=== PATIENT | male | born 1995 | race Caucasian/White ===

== ENCOUNTER 2017-05-29 14:00 | Emergency (ER) | payer OTHER ==
[~2017-05-29] VITALS: Ht 172.7 cm; Wt 83.6 kg
[2017-05-29 14:05] VITALS: TEMP 36.7; Ht 172.7 cm; Wt 83.6 kg
[2017-05-29] MEDS ORDERED: IBUPROFEN 600 MG TAB PO STA (14:20)
[2017-05-29] MEDS ORDERED: MUPIROCIN 2% OINT 22 GM TUBE EXT STA (14:20)
--- NOTE | 2017-05-29 14:30 | EMERGENCY ROOM VISIT NOTE ---
ED Visit Note First contact with patient: 14:15 CHIEF COMPLAINT: Right eye swelling HISTORY OF PRESENT ILLNESS: This 22-year-old male patient presents to the emergency department, ambulatory, complaining of redness and swelling of his right upper eyelid. He states he awoke this morning and was unable to open the eye the entire way. He describes swelling and pain in the area of the eyebrow. He states he believes there may have been an ingrown hair from the eyebrow. The area began as a small pustule, and the redness and swelling has spread. The patient denies any changes in vision, fever, chills, nausea, vomiting. He states there has been no drainage from the wound. He denies any problems with the actual eye or eyelid, but states the swelling seems to be spreading from the eyebrow. He does not have a history of similar symptoms. The patient's mother is concerned the patient could have a stye. REVIEW OF SYSTEMS: A review of systems was performed with positives and pertinent negatives listed in the history of present illness. All other systems were reviewed and are negative. ALLERGIES: None MEDICATIONS: None PMH: None SOCIAL HISTORY: The patient is a [employer] student. He lives locally with his remain. She denies drug, alcohol, tobacco use. PHYSICAL EXAM: VITALS: Vitals are noted on the nurse's note and reviewed by myself. Vital signs stable. GENERAL: This is a 22-year-old white male, in no acute distress, nondiaphoretic , well-developed well-nourished. SKIN: There is a small pustule on the medial aspect of the right eyebrow with mild erythema and normal swelling surrounding the lesion. The right upper eyelid does appear to be very mildly swollen. There are no signs of abscess noted. The pustule is not actively draining. EMERGENCY DEPARTMENT COURSE: The patient was seen and evaluated as above. This is not an actual eye problem, however appears to be coming from a pustular lesion near the eyebrow. The area does not appear to be severely infected, but does appear to have a mild superficial infection related to the pustule. The patient was given 600 mg ibuprofen to help with the swelling and the Sharma ointment to use topically. Discharge instructions were reviewed and the patient was discharged home in good condition. I attest that I have personally reviewed the patient's current medication list. Patient was found to have normal blood pressure on screening and does not require follow-up. DIFFERENTIAL DIAGNOSIS: Cellulitis, periorbital cellulitis, blepharitis, stye, chalazion, pustule, and others DIAGNOSIS: Pustular lesion Current/Historical Medications No Active Prescriptions or Reported Meds Allergies Coded Allergies: No Known Allergies (Unverified , 07/04/16) Vital Signs Date Time Temp Pulse Resp B/P (MAP) Pulse Ox O2 Delivery O2 Flow Rate FiO2 05/29/17 14:37 80 133/93 98 05/29/17 14:05 36.7 81 16 139/83 99 Room Air Medications Administered Medications (Trade) Dose Ordered Sig/Asif Route Start Time Stop Time Status Last Admin Dose Admin Mupirocin (Bactroban 2% Oint) 1 appln NOW STAT EXT 05/29/17 14:20 05/29/17 14:23 DC 05/29/17 14:31 1 APPLN Ibuprofen (Motrin Tab) 600 mg NOW STAT PO 05/29/17 14:20 05/29/17 14:23 DC 05/29/17 14:30 600 MG Departure Information Impression Primary Impression: Pustular lesion Dispostion Home / Self-Care Condition GOOD Prescriptions No Active Prescriptions or Reported Meds Referrals No Doctor, Assigned (PCP) [facility] Patient Instructions ED Wound Care, My [facility] Additional Instructions You were seen in the emergency department for a superficial skin infection above the right eye. This could be an ingrown hair or a pimple. It is not involving your eye or actual eyelid. I do feel that this is superficial in nature, and do not feel that it requires oral antibiotics. You have been prescribed Bactroban (mupirocin) Ointment. Use this ointment three times daily to help with the localized infection. Do not get the ointment in your eye. Keep the area clean and dry. You can use plain soap or baby shampoo and water. Ibuprofen(Motrin, Advil) may be used for inflammation or pain. Use 600mg every six hours as needed. Take with food. Avoid using more than 2400mg in a 24 hour period. Do not use 2400mg per day for more than three consecutive days without physician direction. Prolonged inappropriate use can lead to stomach upset or ulcers. (AND/OR) Acetaminophen(Tylenol) may be used for fever or pain. Use 1000mg every six hours as needed. Avoid using more than 3000mg in a 24 hour period. Follow-up with [facility] in 2-3 days for recheck of the wound. Return to the emergency department for any increased redness, swelling, puslike drainage, fever, chills, nausea, vomiting, or other concerning symptoms.
[2017-05-29 14:37] VITALS: BP 133/93; PULSE 80; O2SAT 98
== END 2017-05-29 14:38 | disposition home or self-care (01) ==
LOC: C.EDB 14:01 → C.EDD 14:38
DX: L08.0 Pyoderma (principal)

== ENCOUNTER 2019-04-25 17:40 | Observation (INO) ==
[2019-04-25] MEDS ORDERED: ALBUT/IPRATROP 3MG/0.5MG NEB 3 ML VIAL INH STA (18:35)
[2019-04-25] MEDS ORDERED: methylPREDNISolone 125 MG/2 ML VIAL IV STA (18:46)
[2019-04-25] MEDS ORDERED: SODIUM CHLORIDE 0.9% 1000ML 1,000 ML IV ONE ×3 (18:46→21:16)
[2019-04-25] MEDS ORDERED: LORazepam 1 MG/2 ML VIAL IV STA (18:46)
[2019-04-25 19:03] LABS: Basophils # (auto) 0.01 K/uL (0-0.2); Basophils % (auto) 0.1 %; Eosinophils # (auto) 0.07 K/uL (0-0.5); Eosinophils % (auto) 0.9 %; Hematocrit (blood only) 43.3 % (42-52); Hemoglobin 15.4 g/dL (14.0-18.0); Immature Granulocytes # (auto) 0.03 K/uL (0.00-0.02); Immature Granulocytes % (auto) 0.4 %; Lymphocytes # (auto) 2.32 K/uL (1.2-3.4); Mean Corpuscular Hemoglobin 32.2 pg (25-34); Mean Corpuscular Hgb Conc 35.6 g/dL (32-36); Mean Corpuscular Volume 90.4 fL (80-100); Mean Platelet Volume 12.1 fL (7.4-10.4); Monocytes # (auto) 0.82 K/uL (0.11-0.59); Monocytes % (auto) 10.6 %; Neutrophils # (auto) 4.49 K/uL (1.4-6.5); Platelet Count 211 K/uL (130-400); RDW Coefficient of Variation 12.8 % (11.5-14.5); RDW Standard Deviation 42.1 fL (36.4-46.3); Red Blood Count 4.79 M/uL (4.7-6.1); White Blood Count 7.74 K/uL (4.8-10.8)
--- NOTE | 2019-04-25 19:17 | XRay Report ---
XR chest 1V portable CLINICAL HISTORY: shortness of breath, asthma, vaping COMPARISON STUDY: Chest radiograph July 04, 2016. FINDINGS: Lung volumes are normal. Lungs are clear. There is no pneumothorax or pleural effusion. Car diac size is normal. Mediastinal contours are normal. There is no evidence for pulmonary edema. IMPRESSION: No acute cardiopulmonary findings. Electronically signed by: Paddy Davila M.D. 04/25/2019 7:16 PM
[2019-04-25 19:31] LABS: BUN Creatinine Ratio 11.9 (10-20); Blood Urea Nitrogen 16 mg/dl (7-18); Calcium 10.1 mg/dl (8.5-10.1); Carbon Dioxide 21 mmol/L (21-32); Chloride 101 mmol/L (98-107); Creatinine Clr Calc Pharmacy 90.8 ml/min; D Dimer < 190 ug/L FEU (0-500); Est GFR (African American) 85.8; Glucose 80 mg/dl (70-99); Potassium 3.3 mmol/L (3.5-5.1); Sodium 136 mmol/L (136-145)
[2019-04-25] MEDS ORDERED: ALBUT/IPRATROP 3MG/0.5MG NEB 3 ML VIAL NEB STA (19:32)
[2019-04-25 19:36] LABS: Troponin I < 0.015 ng/ml (0-0.045)
[2019-04-25 22:30] LABS: C Reactive Protein < 0.29 mg/dl (0-0.29); Thyroid Stimulating Hormone 0.808 uIu/ml (0.300-4.500)
[2019-04-25] MEDS ORDERED: POTASSIUM CHLORIDE 20 MEQ TABCR PO STA (22:45)
[2019-04-25 23:08] LABS: Magnesium 2.2 mg/dl (1.8-2.4); Phosphorus 3.4 mg/dl (2.5-4.9)
[2019-04-25] MEDS ORDERED: LORazepam 2 MG/4 ML VIAL IV STA (23:27)
[2019-04-25] MEDS ORDERED: PANTOprazole 40 MG TAB ONE (23:33)
--- NOTE | 2019-04-26 00:40 | History & Physical Report ---
Date of Service April 26, 2019 Assessment & Plan (1) Tachycardia: Patient is a 24yo M, [employer] student, PMH GERD, childhood asthma, anxiety not on meds, admitted for persistent tachycardia and anxiety. Tachycardia -Suspect related to anxiety in combo with nebs and steroids from ER -Will monitor overnight on tele -Hydroxyzine prn -mIVF -Recommend stopping vape and marijuana use -Send UDS screen -Recommend if he stops marijuana use to obtain outpatient resources for anxiety management GERD -Resume home protonix on DC Code: Full Dispo: tele, obs DVTP: ambulation (2) Chest discomfort: History of Present Illness Chief Complaint: dyspnea, tachycardia, anxiety Primary Care Provider: NO PCP Patient is a 24yo M, [employer] student, PMH GERD, childhood asthma, anxiety not on meds, who presents to the ER with dyspnea, chest discomfort, tachycardia, and anxiety. Patient notes 3 days ago he woke up with URI symptoms of chest congestion, nasal congestion, with some ass'd shortness of breath on exertion. He notes he took a singulair leftover from asthma hx and that helped his symptoms somewhat. He began to be concerned, however, that because of his heavy vape use, he may have the lung disease which has been in the news related to vaping. He notes he vapes "heavily" about 1-2 pods per day (equivalent to 1-2 ppd nicotine content). He stopped vaping 2 days ago and states he will never vape again. He also admits to regular marijuana use, most recently 3 days ago. He admits to being anxious in the ER waiting room and more anxious with more testing being performed and potential admission to hospital. He also performs intermittent fasting. In the ER, his workup was overall negative, including labs, lactate, cxr, d- dimer. He was given 2x nebs, solumedrol, 1mg ativan, and felt better but his HR elevated to the 140s, sinus tachycardia. He was given fluids to help with this, and provided hydroxyzine and more ativan, and still his tachycardia persisted. Patient very anxious on assessment. CT chest elected to not be performed given PERC score of 1 for tachycardia. Allergies Allergy/AdvReac Type Severity Reaction Status Date / Time No Known Allergies Allergy Verified 04/25/19 19:09 Home Medications Home Medications Medication Instructions Recorded Confirmed Type pantoprazole 40 mg PO DAILY 04/25/19 04/25/19 History Past Med/Surg History Medical History Bronchitis (Acute) Social History Preferred Language: Turkish Communication Ability: Effective Last Putter Away Required: No Beliefs That Will Affect Care: None Current Living Situation: Other Current Living Situation Comment: roomates Other Information That Helps Us Care for You: No Feels Safe at Home: Yes Safety Concerns: Feels Safe At This Time Smoking Status: Former smoker Tobacco Type: e-cigarettes ; Smoking End Date: 1 week ago ; Tobacco Cessation Education Requested by Patient: No Hx Alcohol Use: Yes Hx Substance Use: Yes substance use type: marijuana Last Used Substance Other:: 1 week ago Review of Systems Review of Systems: All systems reviewed & are unremarkable except as noted in HPI & below Constitutional: no fever and no chills Respiratory: + chest congestion and + dyspnea on exertion Cardiovascular: + dyspnea on exertion; no chest pain and no radiating jaw, neck or arm pain Gastrointestinal: no abdominal pain Integumentary: no rash Psychiatric: + anxiety Physical Exam Constitutional: WD/WN, vitals as above Eyes: PERRL, conjunctivae normal, anicteric sclerae ENMT: external ear and nose normal, oropharynx normal Neck: normal visual inspection Respiratory: normal respiratory effort, lungs clear to auscultation Cardiovascular: RRR, no murmur, no edema Gastrointestinal (Abdomen): normal bowel sounds, soft, nontender, no hepatosplenomegaly Musculoskeletal: no cyanosis or clubbing, extremities motor strength 5/5 Skin: no rashes, warm and dry Neurologic: PERRL, EOMI, accommodation nl, no face palsy, no dysarthria Psychiatric: Orientation: alert and oriented x 3 Motor Behavior: + psychomotor agitation (restless legs and arms) Affect: + anxious affect Insight: good insight Results & Data Vital Signs (Past 12 Hours) Vital Signs Temp Pulse Pulse Resp BP BP Pulse Ox 04/26/19 00:13 98.2 F 135 H 18 145/75 H 98 04/25/19 22:30 107 H 22 116/68 98 04/25/19 22:20 120 H 17 98 04/25/19 22:17 121 H 20 153/67 H 98 04/25/19 22:15 130 H 30 H 98 04/25/19 22:13 135 H 17 153/67 H 97 04/25/19 22:01 147/73 H 04/25/19 22:00 135 H 14 97 04/25/19 21:50 116 H 17 100 04/25/19 21:40 120 H 17 99 04/25/19 21:30 122 H 16 147/73 H 98 04/25/19 21:20 137 H 13 04/25/19 21:10 135 H 21 04/25/19 21:00 114 H 20 133/68 04/25/19 20:50 106 H 25 H 04/25/19 20:40 105 H 12 04/25/19 20:30 113 H 19 152/95 H 04/25/19 20:20 120 H 15 04/25/19 20:11 137 H 16 147/90 H 04/25/19 20:10 140 H 15 99 04/25/19 20:00 121 H 27 H 130/67 99 04/25/19 19:50 122 H 17 98 04/25/19 19:40 110 H 16 100 04/25/19 19:37 90 18 100 04/25/19 19:30 99 H 18 133/91 100 04/25/19 19:20 95 H 15 99 04/25/19 19:10 95 H 21 98 04/25/19 19:02 106 H 27 H 100 04/25/19 19:00 113 H 23 157/86 H 99 04/25/19 18:49 108 H 16 98 04/25/19 18:47 98 04/25/19 17:51 98 04/25/19 17:48 98.2 F 128 H 22 145/95 H 98 Laboratory Results 04/25/19 04/25/19 04/25/19 Range/Units 21:56 18:50 18:50 WBC (4.8-10.8) K/uL RBC (4.7-6.1) M/uL Hgb (14.0-18.0) g/dL Hct (42-52) % MCV (80-100) fL MCH (25-34) pg MCHC (32-36) g/dL RDW Std Deviation (36.4-46.3) fL RDW Coeff of Archana (11.5-14.5) % Plt Count (130-400) K/uL MPV (7.4-10.4) fL Immature Gran % (Auto) % Neut % (Auto) % Lymph % (Auto) % [place] % (Auto) % Eos % (Auto) % Baso % (Auto) % Immature Gran # (Auto) (0.00-0.02) K/uL Neut # (Auto) (1.4-6.5) K/uL Lymph # (Auto) (1.2-3.4) K/uL [place] # (Auto) (0.11-0.59) K/uL Eos # (Auto) (0-0.5) K/uL Baso # (Auto) (0-0.2) K/uL D-Dimer (0-500) ug/L FEU Sodium 136 (136-145) mmol/L Potassium 3.3 L (3.5-5.1) mmol/L Chloride 101 (98-107) mmol/L Carbon Dioxide 21 (21-32) mmol/L Anion Gap 14.0 H (3-11) BUN 16 (7-18) mg/dl Creatinine 1.35 (0.6-1.4) mg/dl Est Cr Clr Drug Dosing 90.8 ml/min Est GFR ( Amer) 85.8 Est GFR (Non-Af Amer) 74.0 BUN/Creatinine Ratio 11.9 (10-20) Glucose 80 (70-99) mg/dl Lactate 1.4 (0.4-2.0) mmol/L Calcium 10.1 (8.5-10.1) mg/dl Phosphorus 3.4 (2.5-4.9) mg/dl Magnesium 2.2 (1.8-2.4) mg/dl Troponin I < 0.015 (0-0.045) ng/ml C-Reactive Protein < 0.29 (0-0.29) mg/dl TSH 0.808 (0.300-4.500) uIu/ml 04/25/19 04/25/19 Range/Units 18:50 18:50 WBC 7.74 (4.8-10.8) K/uL RBC 4.79 (4.7-6.1) M/uL Hgb 15.4 (14.0-18.0) g/dL Hct 43.3 (42-52) % MCV 90.4 (80-100) fL MCH 32.2 (25-34) pg MCHC 35.6 (32-36) g/dL RDW Std Deviation 42.1 (36.4-46.3) fL RDW Coeff of Archana 12.8 (11.5-14.5) % Plt Count 211 (130-400) K/uL MPV 12.1 H (7.4-10.4) fL Immature Gran % (Auto) 0.4 % Neut % (Auto) 58.0 % Lymph % (Auto) 30.0 % [place] % (Auto) 10.6 % Eos % (Auto) 0.9 % Baso % (Auto) 0.1 % Immature Gran # (Auto) 0.03 H (0.00-0.02) K/uL Neut # (Auto) 4.49 (1.4-6.5) K/uL Lymph # (Auto) 2.32 (1.2-3.4) K/uL [place] # (Auto) 0.82 H (0.11-0.59) K/uL Eos # (Auto) 0.07 (0-0.5) K/uL Baso # (Auto) 0.01 (0-0.2) K/uL D-Dimer < 190 (0-500) ug/L FEU Sodium (136-145) mmol/L Potassium (3.5-5.1) mmol/L Chloride (98-107) mmol/L Carbon Dioxide (21-32) mmol/L Anion Gap (3-11) BUN (7-18) mg/dl Creatinine (0.6-1.4) mg/dl Est Cr Clr Drug Dosing ml/min Est GFR ( Amer) Est GFR (Non-Af Amer) BUN/Creatinine Ratio (10-20) Glucose (70-99) mg/dl Lactate (0.4-2.0) mmol/L Calcium (8.5-10.1) mg/dl Phosphorus (2.5-4.9) mg/dl Magnesium (1.8-2.4) mg/dl Troponin I (0-0.045) ng/ml C-Reactive Protein (0-0.29) mg/dl TSH (0.300-4.500) uIu/ml Code Status & VTE Plan Code Status Full Supervising Physician Co-Signing Physician Notes Patient seen and examined, chart reviewed, case discussed with Dr. Encinas and I agree with her assessment and plan as documented above. Briefly, patient is a 24yo C male with history of mild intermittent asthma presenting with SOB/cough and persistent tachycardia. Patient was administered neb tx x 2 as well as steroids. He feels that his SOB has improved. Still with significant tachycardia. On exam he is afebrile, regular tachycardia, NAD, anxious in appearance Skin - no rash HEENT - NC/AT, PERRL, EOMI, MMM, neck supple Heart - +S1/S2, regular, tachycardic, no m/r/g, no JVD Lungs - CTA, soft scattered end expiratory wheezing, no rales/rhonchi Abd - +BS, soft, NT/ND Ext - no edema Labs and images reviewed Assessment/Plan: 24yo C male with persistent tachycardia, SOB and cough concerning for mild exacerbation of asthma. Patient is highly anxious - he vapes and is concerned about the deaths from vaping he has been hearing about in the news. He denies heavy EtOH use, uses marijuana otherwise denies drug use, specifically no stimulants crack/cocaine/meth/etc. States he is eating and drinking well at home. No bleeding or blood loss. No trauma. He is not hypoxic and has no evidence of respiratory distress. Denies pain. Suspect that his persistent tachycardia is anxiety driven. Other explanations may include nicotine withdrawal (could also account for his cough and anxiety), increased sympathetic tone. Less likely a primary cardiac condition -Will place in observation with telemetry monitoring -IVF -Check Utox -Hydroxyzine PRN anxiety symptoms -If symptoms persist may consider obtaining cardiac echo -Remainder of plan as above PG Care Time/CCT Total # of Minutes Spent Total Time Spent with Patient: Total time spent is greater than 50% in coordination of care (as documented) at patient's floor/unit and/or counseling patient: Resident Activity Tracking Resident Involvement: Resident Care Provided Care Provided: Adult Hospital Medicine
--- NOTE | 2019-04-26 00:43 | Emergency Department Note ---
Entered by Stefania Juarez acting as a scribe for Elmer Feldman MD ED Provider Note Name: John Heller Age: 24 M Arrives Via: Ambulatory Informant: Patient CC: Shortness of breath HPI: 24 male arrives for evaluation of shortness of breath. The patient state that he has a history of asthma, but does not use his inhalers anymore. He notes that he has been experiencing shortness of breath for the past several day. He reports that he recently stopped vaping. He states that his back and chest feel tight when he breathes and he cannot expand all the way. He denies any headache or sore throat. Denies drugs. No medications prior to arrival. Rest makes better. No sick contacts. Denies trauma, leg swelling, fevers, chills, syncope, headache, sore throat, rashes, abdominal pain, nor other symptoms ROS: See above HPI for pertinent positives & negatives. A total of 10 systems reviewed and were otherwise negative. Past Medical History: Bronchitis Past Surgical History: No significant past surgical history Family History: No significant past family history Social History: Surinamese is preferred language Home Medications: Pantoprazole Allergies None Physical: Vitals: BP 157/86, P 95, R 21, O2 98%, Temp 98.2 Exam: GENERAL: Patient is anxious appearing and hyperventilating. EYES: No scleral icterus, unremarkable pupils. ENT: Mucous membranes moist, no nasal congestion. NECK: No masses appreciated, no meningismus, trachea is midline. RESPIRATORY: Wheezing in all lung shafer, good aeration. No dyspnea. Clear to auscultation and equal bilaterally. No rhonchi. CARDIOVASCULAR: Tachycardic, regular rhythm. No murmurs, rubs, gallops leila reciated. GASTROINTESTINAL: Abdomen soft, non-tender, no peritonitis. Bowel sounds positive. No masses appreciated. BACK: No midline tenderness, no CVA tenderness EXTREMITIES: Normal motion all extremities, no cyanosis, no edema. NEUROLOGIC: Alert and oriented, no acute motor or sensory deficits, no focal weakness, cranial nerves grossly intact. SKIN: No rash, no jaundice, no diaphoresis. ED Course: Prior Medical Record, Triage/Nursing Notes, Medications, Allergies reviewed by Me Vital Signs: reviewed and remarkable for tachycardia Labs: Reviewed and remarkable for wnl cbc, bmp, lactate, tsh Interventions: Saline lock, duoneb x 2 , ativan 1mg IV, Solumedrol 125mg IV, NSS bolus 3 L IV Imaging: X ray results are stated below per my interpretation: Chest: 1 view: No infiltrate, no effusion, normal cardiac border. EKG: Per My Interpretation: Indication Tachycardia: Sinus Tach 130 bpm no ectopy no ischemia. QTC 470. No previous for comparison Blood pressure: Elevated - Referred to Hospitalist Course: 1841: The patient was evaluated in room B2, and a complete history and physical examination were performed. 1850: I reevaluated the patient and he is anxious about IV placement. 2006: I reevaluated the patient and updated him on his results, the patient's HR is still in the 140s, but he reports that he is feeling better 2115: I reevaluated the patient and his heart rate is still in the 140s when he sits up. The patient will be given his 2nd liter of fluid. 2209: I reevaluated the patient and he was adamant that he has not taken any medications or has vaped in the past few days. When the patient lays down his heart rate is in the 120s, but when sitting up it raised to the 140s. 2234: I reviewed the patient's case with Dr. Pena [facility] Hospitalist. She will evaluate the patient for further management. 2249: I had a long discussion with the patient and his father, they are comfortable with the patient being evaluated as an inpatient. Consults: Dr. Pena [facility] Hospitalist Disposition: Hospitalization Differentials: Etiologies such as infections, reactive airway disease, pneumonia, pneumothorax, COPD, CHF, cardiac ischemia, pulmonary embolism, mus culoskeletal, gastrointestinal, amongst other pathologies. Medical Decision Makin yr old male with vague chest discomfort and shortness of breath who by exam is tachycardic with mild diffuse wheezing. Given duoneb x2 with resolution of shob. With asthma history solumedrol given. Clearly anxious thus ativan given. Persistent tachy thus EKG with sinus tach. Labs unremarkable with dimer and trop negative. Does not appear to be pe, dissection, acs. Symptom free other than tachy. After extensive fluid resus still tachy without clear cause. Reviewed with hospitalist who will evaluate further. Patient does not appear septic and without fever nor wbc elevation I do not feel abx indicated at this time. He is adamant no drugs and has no vaped in a few days. Tachy remains even when sleeping. Many hours post nebs thus seems unlikely related to medications. Impression: Tachycardia Asthma Exacerbation Critical Care Time: The scribe's documentation has been prepared under my direction and personally r eviewed by me in its entirety. I confirm that the note above accurately reflects all work, treatment, procedures, and medical decision making performed by me. Elmer Feldman MD Impression & Plan Tachycardia, Asthma exacerbation, Chest discomfort Past Med/Surg History Medical History Bronchitis (Acute) Social History Preferred Language: Surinamese Feels Safe at Home: Yes Smoking Status: Former smoker Results & Data Vital Signs Vital Signs - 24 hr 04/25/19 17:48 04/25/19 17:51 04/25/19 18:47 Temperature 36.8 C Temperature Source Oral Sepsis Recent Fever Within 48 Hours No Sepsis New/Unexplained Change in Mental Status No Sepsis Action Taken by Nursing No Action Required Pulse Rate 128 H Pulse Rate [Apical] Pulse Rate from SpO2 Sensor Respiratory Rate 22 Respiratory Effort / Characteristics Respiratory Depth Respiratory Pattern Blood Pressure 145/95 H Blood Pressure [Right Arm] Blood Pressure Mean 111 Blood Pressure Mean [Right Arm] Blood Pressure Position Sitting Blood Pressure Position [Right Arm] Pulse Oximetry 98 98 98 Oxygen Delivery Method Room Air Room Air Room Air 04/25/19 18:49 04/25/19 19:00 04/25/19 19:02 Temperature Temperature Source Sepsis Recent Fever Within 48 Hours Sepsis New/Unexplained Change in Mental Status Sepsis Action Taken by Nursing Pulse Rate 113 H 106 H Pulse Rate [Apical] 108 H Pulse Rate from SpO2 Sensor 115 H 109 H Respiratory Rate 16 23 27 H Respiratory Effort / Characteristics Non-Labored Spontaneous Respiratory Depth Respiratory Pattern Blood Pressure 157/86 H Blood Pressure [Right Arm] Blood Pressure Mean 109 Blood Pressure Mean [Right Arm] Blood Pressure Position Blood Pressure Position [Right Arm] Pulse Oximetry 98 99 100 Oxygen Delivery Method Room Air 04/25/19 19:10 04/25/19 19:20 04/25/19 19:30 Temperature Temperature Source Sepsis Recent Fever Within 48 Hours Sepsis New/Unexplained Change in Mental Status Sepsis Action Taken by Nursing Pulse Rate 95 H 95 H 99 H Pulse Rate [Apical] Pulse Rate from SpO2 Sensor 104 H 95 H 98 H Respiratory Rate 21 15 18 Respiratory Effort / Characteristics Respiratory Depth Respiratory Pattern Blood Pressure 133/91 Blood Pressure [Right Arm] Blood Pressure Mean 105 Blood Pressure Mean [Right Arm] Blood Pressure Position Blood Pressure Position [Right Arm] Pulse Oximetry 98 99 100 Oxygen Delivery Method 04/25/19 19:37 04/25/19 19:40 04/25/19 19:50 Temperature Temperature Source Sepsis Recent Fever Within 48 Hours Sepsis New/Unexplained Change in Mental Status Sepsis Action Taken by Nursing Pulse Rate 110 H 122 H Pulse Rate [Apical] 90 Pulse Rate from SpO2 Sensor 115 H 121 H Respiratory Rate 18 16 17 Respiratory Effort / Characteristics Non-Labored Spontaneous Respiratory Depth Respiratory Pattern Blood Pressure Blood Pressure [Right Arm] Blood Pressure Mean Blood Pressure Mean [Right Arm] Blood Pressure Position Blood Pressure Position [Right Arm] Pulse Oximetry 100 100 98 Oxygen Delivery Method Room Air 04/25/19 20:00 04/25/19 20:10 04/25/19 20:11 Temperature Temperature Source Sepsis Recent Fever Within 48 Hours Sepsis New/Unexplained Change in Mental Status Sepsis Action Taken by Nursing Pulse Rate 121 H 140 H 137 H Pulse Rate [Apical] Pulse Rate from SpO2 Sensor 121 H 138 H Respiratory Rate 27 H 15 16 Respiratory Effort / Characteristics Respiratory Depth Respiratory Pattern Blood Pressure 130/67 147/90 H Blood Pressure [Right Arm] Blood Pressure Mean 88 109 Blood Pressure Mean [Right Arm] Blood Pressure Position Blood Pressure Position [Right Arm] Pulse Oximetry 99 99 Oxygen Delivery Method 04/25/19 20:20 04/25/19 20:30 04/25/19 20:40 Temperature Temperature Source Sepsis Recent Fever Within 48 Hours Sepsis New/Unexplained Change in Mental Status Sepsis Action Taken by Nursing Pulse Rate 120 H 113 H 105 H Pulse Rate [Apical] Pulse Rate from SpO2 Sensor Respiratory Rate 15 19 12 Respiratory Effort / Characteristics Respiratory Depth Respiratory Pattern Blood Pressure 152/95 H Blood Pressure [Right Arm] Blood Pressure Mean 114 Blood Pressure Mean [Right Arm] Blood Pressure Position Blood Pressure Position [Right Arm] Pulse Oximetry Oxygen Delivery Method 04/25/19 20:50 04/25/19 21:00 04/25/19 21:10 Temperature Temperature Source Sepsis Recent Fever Within 48 Hours Sepsis New/Unexplained Change in Mental Status Sepsis Action Taken by Nursing Pulse Rate 106 H 114 H 135 H Pulse Rate [Apical] Pulse Rate from SpO2 Sensor Respiratory Rate 25 H 20 21 Respiratory Effort / Characteristics Respiratory Depth Respiratory Pattern Blood Pressure 133/68 Blood Pressure [Right Arm] Blood Pressure Mean 89 Blood Pressure Mean [Right Arm] Blood Pressure Position Blood Pressure Position [Right Arm] Pulse Oximetry Oxygen Delivery Method 04/25/19 21:20 04/25/19 21:30 04/25/19 21:40 Temperature Temperature Source Sepsis Recent Fever Within 48 Hours Sepsis New/Unexplained Change in Mental Status Sepsis Action Taken by Nursing Pulse Rate 137 H 122 H 120 H Pulse Rate [Apical] Pulse Rate from SpO2 Sensor 122 H 118 H Respiratory Rate 13 16 17 Respiratory Effort / Characteristics Respiratory Depth Respiratory Pattern Blood Pressure 147/73 H Blood Pressure [Right Arm] Blood Pressure Mean 97 Blood Pressure Mean [Right Arm] Blood Pressure Position Blood Pressure Position [Right Arm] Pulse Oximetry 98 99 Oxygen Delivery Method 04/25/19 21:50 04/25/19 22:00 04/25/19 22:01 Temperature Temperature Source Sepsis Recent Fever Within 48 Hours Sepsis New/Unexplained Change in Mental Status Sepsis Action Taken by Nursing Pulse Rate 116 H 135 H Pulse Rate [Apical] Pulse Rate from SpO2 Sensor 119 H 131 H Respiratory Rate 17 14 Respiratory Effort / Characteristics Respiratory Depth Respiratory Pattern Blood Pressure 147/73 H Blood Pressure [Right Arm] Blood Pressure Mean 97 Blood Pressure Mean [Right Arm] Blood Pressure Position Blood Pressure Position [Right Arm] Pulse Oximetry 100 97 Oxygen Delivery Method 04/25/19 22:13 04/25/19 22:15 04/25/19 22:17 Temperature Temperature Source Sepsis Recent Fever Within 48 Hours Sepsis New/Unexplained Change in Mental Status Sepsis Action Taken by Nursing Pulse Rate 135 H 130 H Pulse Rate [Apical] 121 H Pulse Rate from SpO2 Sensor 132 H 130 H Respiratory Rate 17 30 H 20 Respiratory Effort / Characteristics Non-Labored Spontaneous Respiratory Depth Normal Respiratory Pattern Regular Blood Pressure 153/67 H Blood Pressure [Right Arm] 153/67 H Blood Pressure Mean 95 Blood Pressure Mean [Right Arm] 95 Blood Pressure Position Blood Pressure Position [Right Arm] Lying Pulse Oximetry 97 98 98 Oxygen Delivery Method Room Air 04/25/19 22:20 04/25/19 22:30 04/26/19 00:13 Temperature 36.8 C Temperature Source Oral Sepsis Recent Fever Within 48 Hours Sepsis New/Unexplained Change in Mental Status Sepsis Action Taken by Nursing Pulse Rate 120 H 107 H Pulse Rate [Apical] 135 H Pulse Rate from SpO2 Sensor 119 H 118 H Respiratory Rate 17 22 18 Respiratory Effort / Characteristics Non-Labored Spontaneous Respiratory Depth Respiratory Pattern Regular Blood Pressure 116/68 Blood Pressure [Right Arm] 145/75 H Blood Pressure Mean 84 Blood Pressure Mean [Right Arm] 98 Blood Pressure Position Blood Pressure Position [Right Arm] Lying Pulse Oximetry 98 98 98 Oxygen Delivery Method Room Air Home Medications Current Medication List: was personally reviewed by me Laboratory Data Attestation: I reviewed the patient's lab results. Result diagrams: 04/25/19 18:50 04/25/19 18:50 Lab Results 04/25/19 04/25/19 04/25/19 Range/Units 18:50 18:50 18:50 WBC 7.74 (4.8-10.8) K/uL RBC 4.79 (4.7-6.1) M/uL Hgb 15.4 (14.0-18.0) g/dL Hct 43.3 (42-52) % MCV 90.4 (80-100) fL MCH 32.2 (25-34) pg MCHC 35.6 (32-36) g/dL RDW Std Deviation 42.1 (36.4-46.3) fL RDW Coeff of Archana 12.8 (11.5-14.5) % Plt Count 211 (130-400) K/uL MPV 12.1 H (7.4-10.4) fL Immature Gran % (Auto) 0.4 % Neut % (Auto) 58.0 % Lymph % (Auto) 30.0 % Barrow % (Auto) 10.6 % Eos % (Auto) 0.9 % Baso % (Auto) 0.1 % Immature Gran # (Auto) 0.03 H (0.00-0.02) K/uL Neut # (Auto) 4.49 (1.4-6.5) K/uL Lymph # (Auto) 2.32 (1.2-3.4) K/uL Barrow # (Auto) 0.82 H (0.11-0.59) K/uL Eos # (Auto) 0.07 (0-0.5) K/uL Baso # (Auto) 0.01 (0-0.2) K/uL D-Dimer < 190 (0-500) ug/L FEU Sodium 136 (136-145) mmol/L Potassium 3.3 L (3.5-5.1) mmol/L Chloride 101 (98-107) mmol/L Carbon Dioxide 21 (21-32) mmol/L Anion Gap 14.0 H (3-11) BUN 16 (7-18) mg/dl Creatinine 1.35 (0.6-1.4) mg/dl Est Cr Clr Drug Dosing 90.8 ml/min Est GFR ( Amer) 85.8 Est GFR (Non-Af Amer) 74.0 BUN/Creatinine Ratio 11.9 (10-20) Glucose 80 (70-99) mg/dl Lactate (0.4-2.0) mmol/L Calcium 10.1 (8.5-10.1) mg/dl Phosphorus (2.5-4.9) mg/dl Magnesium (1.8-2.4) mg/dl Troponin I < 0.015 (0-0.045) ng/ml C-Reactive Protein (0-0.29) mg/dl TSH (0.300-4.500) uIu/ml 04/25/19 04/25/19 Range/Units 18:50 21:56 WBC (4.8-10.8) K/uL RBC (4.7-6.1) M/uL Hgb (14.0-18.0) g/dL Hct (42-52) % MCV (80-100) fL MCH (25-34) pg MCHC (32-36) g/dL RDW Std Deviation (36.4-46.3) fL RDW Coeff of Archana (11.5-14.5) % Plt Count (130-400) K/uL MPV (7.4-10.4) fL Immature Gran % (Auto) % Neut % (Auto) % Lymph % (Auto) % B[place] % (Auto) % Eos % (Auto) % Baso % (Auto) % Immature Gran # (Auto) (0.00-0.02) K/uL Neut # (Auto) (1.4-6.5) K/uL Lymph # (Auto) (1.2-3.4) K/uL Barrow # (Auto) (0.11-0.59) K/uL Eos # (Auto) (0-0.5) K/uL Baso # (Auto) (0-0.2) K/uL D-Dimer (0-500) ug/L FEU Sodium (136-145) mmol/L Potassium (3.5-5.1) mmol/L Chloride (98-107) mmol/L Carbon Dioxide (21-32) mmol/L Anion Gap (3-11) BUN (7-18) mg/dl Creatinine (0.6-1.4) mg/dl Est Cr Clr Drug Dosing ml/min Est GFR ( Amer) Est GFR (Non-Af Amer) BUN/Creatinine Ratio (10-20) Glucose (70-99) mg/dl Lactate 1.4 (0.4-2.0) mmol/L Calcium (8.5-10.1) mg/dl Phosphorus 3.4 (2.5-4.9) mg/dl Magnesium 2.2 (1.8-2.4) mg/dl Troponin I (0-0.045) ng/ml C-Reactive Protein < 0.29 (0-0.29) mg/dl TSH 0.808 (0.300-4.500) uIu/ml Administered Medications Discontinued Medications Albuterol (Duoneb) 3 ml INH NOW STA Stop: 04/25/19 18:36 Last Admin: 04/25/19 18:47 Dose: 3 ml Documented by: [id number] Albuterol (Duoneb) 3 ml NEB NOW STA Stop: 04/25/19 19:33 Last Admin: 04/25/19 19:36 Dose: 3 ml Documented by: [id number] Hydroxyzine HCl (Vistaril) 25 mg PO NOW STA Stop: 04/25/19 23:28 Last Admin: 04/25/19 23:35 Dose: 25 mg Documented by: [id number] Sodium Chloride (Nss 1000ml) 1,000 mls @ 999 mls/hr IV .Q1H1M ONE Stop: 04/25/19 19:46 Last Infusion: 04/25/19 19:54 Dose: 0 mls/hr Documented by: [id number] Admin: 04/25/19 18:57 Dose: 999 mls/hr Documented by: [id number] Lorazepam (Ativan) 1 mg in 2 mls @ 2 mls/min IV NOW STA Stop: 04/25/19 18:47 Last Admin: 04/25/19 18:58 Dose: 2 mls/min Documented by: [id number] Sodium Chloride (Nss 1000ml) 1,000 mls @ 999 mls/hr IV .Q1H1M ONE Stop: 04/25/19 21:10 Last Infusion: 04/25/19 21:40 Dose: 0 mls/hr Documented by: [id number] Admin: 04/25/19 20:16 Dose: 999 mls/hr Documented by: [id number] Sodium Chloride (Nss 1000ml) 1,000 mls @ 999 mls/hr IV .Q1H1M ONE Stop: 04/25/19 22:16 Last Infusion: 04/26/19 00:55 Dose: 0 mls/hr Documented by: [id number] Admin: 04/25/19 21:40 Dose: 999 mls/hr Documented by: [id number] Lorazepam (Ativan) 2 mg in 4 mls @ 4 mls/min IV NOW STA Stop: 04/25/19 23:28 Last Admin: 04/25/19 23:36 Dose: 4 mls/min Documented by: [id number] Methylprednisolone (Solumedrol) 125 mg IV NOW STA Stop: 04/25/19 18:47 Last Admin: 04/25/19 18:58 Dose: 125 mg Documented by: [id number] Pantoprazole Sodium (Protonix) Confirm Administered Dose 40 mg .ROUTE .STK-MED ONE Stop: 04/25/19 23:34 Last Admin: 04/25/19 23:35 Dose: Not Given Documented by: [id number] Potassium Chloride (Klor-Con M20) 20 meq PO NOW STA Stop: 04/25/19 22:46 Last Admin: 04/25/19 22:54 Dose: 20 meq Documented by: [id number] Imaging Data Radiologist's Impression: Radiology results as stated below per my review and the radiologist's interpretation: XR chest 1V portable CLINICAL HISTORY: shortness of breath, asthma, vaping COMPARISON STUDY: Chest radiograph July 04, 2016. FINDINGS: Lung volumes are normal. Lungs are clear. There is no pneumothorax or pleural effusion. Cardiac size is normal. Mediastinal contours are normal. There is no evidence for pulmonary edema. IMPRESSION: No acute cardiopulmonary findings. Electronically signed by: Paddy Davila M.D. 04/25/2019 7:16 PM Blood Pressure Blood Pressure Findings: Elevated blood pressure Blood Pressure Disposition: further management by hospitalist Discharge Plan Visit Data Chief Complaint: Asthma Stated Complaint: SOB, CHEST TIGHTNESS, ASTMA ED Provider: Elmer Feldman Discharge Problem: Tachycardia, Asthma exacerbation, Chest discomfort Patient Disposition: Being Evaluated by Hospitalist Discharge Instructions Interventions: ED Discharge Assessment Last Done: 04/26/19 00:59 Discharge Problem: Asthma exacerbation Qualifiers: Asthma severity: mild Asthma persistence: intermittent Qualified Code(s): J45.21 - Mild intermittent asthma with (acute) exacerbation The scribe's documentation has been prepared under my direction and personally reviewed by me in its entirety. I confirm that the note above accurately reflects all work, treatment, procedures, and medical decision making performed by me.
[2019-04-26] MEDS ORDERED: ONDANSETRON INJ 2 MG/ML 2 ML VIAL IV PRN (01:14)
[2019-04-26] MEDS ORDERED: ACETAMINOPHEN 325 MG TAB PO PRN (01:14)
[2019-04-26] MEDS ORDERED: MAGNESIUM HYDROXIDE SUSP 30 ML UDC PO PRN (01:14)
[2019-04-26] MEDS ORDERED: ALUMINUM/MAGNESIUM SUSP 30 ML UDC PO PRN (01:14)
[2019-04-26] MEDS: SODIUM CHLORIDE 0.9% 1000ML 1,000 ML IV SCH ×2 (01:30→08:46)
[2019-04-26] MEDS ORDERED: INFLUENZA VIRUS QUAD VACCINE 0.5 ML SYR IM ONE (04:00)
[2019-04-26] MEDS ORDERED: INFLUENZA ADMINISTRATION CHARGE ONE (04:00)
[2019-04-26 05:15] LABS: Amphetamines+Metham, Urine Neg (Neg); Barbiturates, Urine Neg (Neg); Benzodiazepine, Urine Neg (Neg); Cocaine, Urine Neg (Neg); MDMA (Ecstacy), Urine Neg (Neg); Methadone, Urine Neg (Neg); Opiate, Urine Neg (Neg); Phencyclidine, Urine Neg (Neg)
[2019-04-26] MEDS ORDERED: PNEUMOCOCCAL POLYSACCHARIDES 25 MCG/0.5 ML VIAL/SYR IM ONE (08:00)
[2019-04-26] MEDS ORDERED: PNEUMOCOCCAL ADMINISTRATION CHARGE ONE (08:00)
[2019-04-26] MEDS ORDERED: PANTOprazole 40 MG TAB PO SCH (09:00)
[2019-04-26] MEDS ORDERED: ALBUTEROL HFA 8 GM INHALER INH PRN (13:34)
--- NOTE | 2019-04-26 21:55 | Discharge Summary ---
Date of Service April 26, 2019 Admission HPI Per Admitting Provider Patient is a 24yo M, [employer] student, H GERD, childhood asthma, anxiety not on meds, who presents to the ER with dyspnea, chest discomfort, tachycardia, and anxiety. Patient notes 3 days ago he woke up with URI symptoms of chest congestion, nasal congestion, with some ass'd shortness of breath on exertion. He notes he took a singulair leftover from asthma and that helped his symptoms somewhat. He began to be concerned, however, that because of his heavy vape use, he may have the lung disease which has been in the news related to vaping. He notes he vapes "heavily" about 1-2 pods per day (equivalent to 1-2 p pd nicotine content). He stopped vaping 2 days ago and states he will never vape again. He also admits to regular marijuana use, most recently 3 days ago. He admits to being anxious in the ER waiting room and more anxious with more testing being performed and potential admission to hospital. He also performs intermittent fasting. In the ER, his workup was overall negative, including labs, lactate, cxr, d- dimer. He was given 2x nebs, solumedrol, 1mg ativan, and felt better but his HR elevated to the 140s, sinus tachycardia. He was given fluids to help with this, and provided hydroxyzine and more ativan, and still his tachycardia persisted. Patient very anxious on assessment. CT chest elected to not be performed given PERC score of 1 for tachycardia. Admission Exam Per Admitting Provider Constitutional: WD/WN, vitals as above Eyes: PERRL, conjunctivae normal, anicteric sclerae ENMT: external ear and nose normal, oropharynx normal Neck: normal visual inspection Respiratory: normal respiratory effort, lungs clear to auscultation Cardiovascular: RRR, no murmur, no edema Gastrointestinal (Abdomen): normal bowel sounds, soft, nontender, no hepatosplenomegaly Musculoskeletal: no cyanosis or clubbing, extremities motor strength 5/5 Skin: no rashes, warm and dry Neurologic: PERRL, EOMI, accommodation nl, no face palsy, no dysarthria Psychiatric: Orientation: alert and oriented x 3 Motor Behavior: + psychomotor agitation (restless legs and arms) Affect: + anxious affect Insight: good insight Principal Diagnosis Mild intermittent asthma GERD Anxiety Discharge Exam Constitutional well developed, well nourished and + well hydrated; no acute distress Respiratory normal respiratory effort, lungs clear to auscultation Cardiovascular RRR, no murmur, no edema Extremities: no calf tenderness and no edema Gastrointestinal (Abdomen) normal bowel sounds, soft, nontender, no hepatosplenomegaly Skin patients hands were sweaty, otherwise skin warm dry and intact Neurologic Speech / Cognition: normal speech no focal deficits noted Psychiatric A+Ox3, euthymic affect Discharge Data Allergies Allergy/AdvReac Type Severity Reaction Status Date / Time No Known Allergies Allergy Verified 04/25/19 19:09 Consultations 04/25/19 22:47 ED Decision to Admit Stat Hospital Course (1) Tachycardia: Patient is a 24yo M, [employer] student, PMH GERD, childhood asthma, anxiety not on meds, admitted for persistent tachycardia and anxiety. Acute exacerbation of Mild intermittent asthma -Hx of childhood asthma with acute attack possibly preceded by URI, in the setting of nicotine vaping and marijuana use -was receiving solumedrol in the ED -given duoneb treatments while inpatient -significant improvement overnight -discharged with 5 days of Prednisone 40 mg -discharged with Albuterol inhaler -recommend follow up with PCP to evaluate control of Asthma and continue outpatient management Tachycardia -UDS + for marijuana otherwise negative -EKG: sinus tachycardia -Suspect related to anxiety in combination with nebs and steroids from ER -Monitored overnight on tele, with resolution of tachycardia -mIVF at 125 ml/hr -tachycardia resolved 04/26 AM -treatment of anxiety as below Anxiety -patient admits history of anxiety with no formal diagnosis or medications -current stress related to school and changing major to economics -patient admits poor sleep over the last several nights -recommend patient establish with a PCP in [place] -discussed treatment options with patient including [facility] as well as other therapists in town, in conjunction with medical management using SSRI or SNRI -recommend stop vaping and marijuana use GERD -Resumed home protonix on discharge Code: Full Total Time Total Time Spent Total Time Spent (In Minutes): 30 Discharge Plan Discharge Items Patient Disposition: Home - Self-Care Reason For Visit: TACHYCARDIA, ANXIETY Discharge Diagnosis: Asthma exacerbation Activity: Per Instructions section Non-emergency contact: Primary Care Provider Call non-emergency contact if: your symptoms worsen Follow-up/Referrals: PCP,NO [Primary Care Provider] - Diet: Regular Addtl Attending Provider Instructions: Mr. Heller you had an worsening of asthma that may have been caused by a viral infection. You also had a fast heart rate that could be caused by anxiety and worsened by some of the medication given in the hospital. We treated your asthma with inhaled treatments and steroids, you will go home with an inhaler to use when you are feeling chest tightness, shortness of breath or persistent night time cough. The inhaler may make your heart beat fast for a short time after taking the medication. For your anxiety you should go to [facility] and discuss with your primary care physician attempting to obtain a counselor. You can also discuss with your primary care doctor the possibility of starting a medication to treat you anxiety including an SSRI or SNRI. Changes include adding the inhaler for your asthma symptoms, as well as 5 days of prednisone for your asthma symptoms. It will be important to decrease or stop vaping and smoking marijuana since this may be worsening your asthma symptoms. Follow up will be with your primary care doctor. You will need to follow up on your asthma treatment as well as treatment for anxiety. This will also be a good place to talk about cessation of vaping if you would like to do this. Warning signs include worsening shortness of breath not improved with your home medication, passing out, and worsening of symptoms. Pending Studies at Discharge: No Stand-Alone Forms: My [facility] Medications and DC Order Prescriptions: New albuterol sulfate 90 mcg/actuation HFA aerosol inhaler 2 puffs INH Q8H PRN (Reason: shortness of breath or wheezing) Qty: 8 RF: 0 prednisone 20 mg tablet 40 mg PO DAILY 5 Days Qty: 10 RF: 0 Continued pantoprazole 40 mg tablet,delayed release (DR/EC) 40 mg PO DAILY RF: 0 Discharge Orders: Discharge Order (Routine); Ordered 04/26/19 Ordered By: Darwin Tatmu Admission Data Admit Date/Time: 04/26/19 00:38 Attending Provider: Paulette Rea Admit Provider: Cielo Encinas Primary Care Provider: PCP,NO Other Providers: Ashley David Other Interventions: Discharge Summary Assessment (RN) Last Done: 04/26/19 14:51 DC Date/Time DO NOT enter until pt leaves facility: 04/26/19 15:30 Supervising Physician Co-Signing Physician Notes Resident Physician Supervision Note: I independently interviewed and examined the patient and verified the osorio history and physical, reviewed labs and image studies, discussed the case with the resident Dr. Tatum and agree with the findings and care plan.
== END 2019-04-26 15:30 | disposition home or self-care (01) ==
LOC: ED 17:40 → 2W 17:40 → SUATTDRO 04-26 00:38 → 2W 04-26 00:59